=== PATIENT | female | born 1990 ===

== ENCOUNTER → 2018-03-04 | Outpatient (CLI) | payer BC, MEDICARE ==
--- NOTE | 2018-03-07 18:08 | PATHOLOGY ---
[facility] Accession Number: [id number] . 01 Material submitted: . PART A: LEFT 5TH TOE PART B: LEFT 4TH TOE . 01 Clinician provided ICD-10: B07.8 . 02 Diagnosis: A. Left fifth toe, shave biopsy: - Hyperkeratotic horn. See comment. . B. Left fourth toe, punch biopsy: - Verruca plantaris with cutaneous horn. LBQ/03/07/2018 . 02 Comment: Sections of the left fifth toe shave biopsy reveal a thickened hyperkeratotic horn. There is no underlying epidermis/dermis for review. Based on the pattern within the hyperkeratotic horn (embedded columns of parakeratosis with focal hemorrhage), we favor that there is an underlying verruca and not a callous. We cannot make a definitive diagnosis since there is no underlying epidermis/dermis. . Sections of the left fourth toe punch biopsy reveal skin showing verruca plantaris with cutaneous horn. There is no evidence of malignancy. . The case is also examined by Dr. Dias, dermatopathologist, who concurs with the above diagnoses. (JPM/db; 03/07/2018) . 02 Electronically signed: . Jay Jay Venegas MD, Pathologist NPI- [id number] . 01 Gross description: . A. The specimen is received in formalin, labeled "Benavides Colette, fifth L". The site is further designated on the requisition as, "left fifth toe". Received is a shave biopsy of light brown, verrucoid-appearing to flaky skin measuring 2.0 x 1.6 x 1.3 cm in greatest dimensions. The surgical margin is inked. The specimen is serially sectioned and entirely submitted in cassettes A1 through A3. . B. The specimen is received in formalin, labeled "Makayla Alvarenga fourth L". The site is further designated on the requisition as, "L fourth toe". Received is a punch biopsy measuring 0.5 x 0.5 x 0.9 cm in greatest dimensions. The epidermal surface displays a lesion which is well circumscribed, flat, flaky and light ruiz measuring 0.5 x 0.5 cm. The surgical margin is inked. The specimen is bisected and entirely submitted in cassette B1. (CAA; 03/05/2018) QAC/QAC . 02 Pathologist provided ICD-10: B07.0, L85.8 . 02 CPT . 962258, 121220 Specimen Comment: A courtesy copy of this report has been sent to Specimen Comment: [phone]. Specimen Comment: Report sent to Specimen Comment: A duplicate report has been generated due to demographic updates. Performed at: 01 [facility] [address], [place], [place] [id number] MD Sohail Dent MD Phone: [phone] Performed at: 02 [facility] [address], [place] [id number] MD Jay Jay Venegas MD Phone: [phone]
== END | disposition home or self-care (01) ==
LOC: SPEC 12:59
PROVIDERS: ATTEND Podiatrist
DX: B07.8 Other viral warts (principal); L85.8 Other specified epidermal thickening
CPT/HCPCS: 88305